=== PATIENT | female | born 1975 | race American Indian/Alaskan Native ===

== ENCOUNTER 2021-02-06 11:27 | Emergency (ER) | payer BC, OTHER ==
[2021-02-06] MEDS ORDERED: cloNIDine 0.2 MG TAB PO ONE (12:29)
--- NOTE | 2021-02-06 12:33 | Emergency Department Report ---
HPI - General Chief Complaint: Dizziness Time Seen by Provider: 02/06/21 12:29 - HPI HPI: This is a 45-year-old -Indian female presents to the emergency department after passing out this morning shortly after moving a mini fridge up a few flights of stairs. This occurred somewhere around 11:45 AM. The patient remembers getting the fridge up to the room but then told her mother that she needed to take a quick break because she felt dizzy. The next thing she remembers her mother was standing over her asking how to unlock her phone to call for EMS and told her that she had passed out. After her syncopal episode the patient denies any headache, neck pain, back pain, chest pain, shortness of breath, dizziness/lightheadedness. She has a history of hypertension for which she takes lisinopril 10 mg/day, but did not take the medication this morning. The patient was found to have extremely elevated blood pressure both with EMS and in triage. The patient declined EMS transport. She denies any tobacco or illicit drug use. ED Past Medical Hx - Past Medical History Previous Medical History?: Yes Hx Hypertension: Yes - Surgical History Past Surgical History?: Yes Hx Cholecystectomy: Yes - Social History Smoking Status: Never Smoker Substance Use Type: None - Medications Home Medications: Home Medications Medication Instructions Recorded Confirmed Last Taken Type amLODIPine 5 mg PO DAILY #20 tab 02/06/21 Unknown Rx ED Review of Systems ROS: Stated complaint: FALL OUT/BLOOD PRESSURE Other details as noted in HPI Comment: All other systems reviewed and negative Constitutional: denies: chills, fever Eyes: denies: eye pain, vision change ENT: denies: ear pain, throat pain Respiratory: denies: cough, shortness of breath Cardiovascular: syncope. denies: chest pain Gastrointestinal: denies: abdominal pain, vomiting Genitourinary: denies: dysuria, discharge Musculoskeletal: denies: back pain, arthralgia Skin: denies: rash, lesions Neurological: other (dizziness/lightheaded). denies: headache, weakness, numbness, paresthesias Physical Exam - Physical Exam Vital Signs: Vital Signs 02/06/21 11:54 Temperature 98.8 F Pulse Rate 99 H Respiratory 20 Rate Blood Pressure 222/145 O2 Sat by Pulse 99 Oximetry Physical Exam: GENERAL: The patient is well-developed well-nourished. HENT: Normocephalic. Atraumatic. Patient has moist mucous membranes. EYES: Extraocular motions are intact. No nystagmus. NECK: Supple. Trachea is midline. CHEST/LUNGS: Clear to auscultation. There is no respiratory distress noted. HEART/CARDIOVASCULAR: Regular. There is no tachycardia. There is no murmur. ABDOMEN: Abdomen is soft, nontender. Patient has normal bowel sounds. Obese habitus. SKIN: Skin is warm and dry. NEURO: The patient is awake, alert, and oriented. The patient is cooperative. The patient has no focal neurologic deficits. Normal speech. Cranial nerves II through XII grossly intact. No facial asymmetry. No pronator drift or dysmetria. MUSCULOSKELETAL: There is no tenderness or deformity. There is no limitation range of motion. ED Course Vital Signs 02/06/21 11:54 Temperature 98.8 F Pulse Rate 99 H Respiratory 20 Rate Blood Pressure 222/145 O2 Sat by Pulse 99 Oximetry - Consultations Consultation #1: 02/06/21 15:[address] Do, [facility], on the [facility]. Unfortunately patient does not have any previous EKGs in which to compare these lateral T wave inversions. Dr. Do agrees with the plan for outpatient follow-up. She is arranging for the patient to have an assigned appointment with her PCP in the next few days, and [facility] will also call her to schedule close outpatient follow-up regarding her EKG findings and this recent syncopal episode. ED Medical Decision Making - Lab Data Result diagrams: 02/06/21 12:35 02/06/21 12:35 Lab Results 02/06/21 02/06/21 02/06/21 Range/Units 12:35 12:35 12:35 WBC 7.0 (4.5-11.0) K/mm3 RBC 4.41 (3.65-5.03) M/mm3 Hgb 13.0 (10.1-14.3) gm/dl Hct 38.2 (30.3-42.9) % MCV 87 (79-97) fl MCH 29 (28-32) pg MCHC 34 (30-34) % RDW 15.0 (13.2-15.2) % Plt Count 305 (140-440) K/mm3 Lymph % (Auto) 18.0 (13.4-35.0) % [place] % (Auto) 6.6 (0.0-7.3) % Eos % (Auto) 0.3 (0.0-4.3) % Baso % (Auto) 1.4 (0.0-1.8) % Lymph # (Auto) 1.3 (1.2-5.4) K/mm3 [place] # (Auto) 0.5 (0.0-0.8) K/mm3 Eos # (Auto) 0.0 (0.0-0.4) K/mm3 Baso # (Auto) 0.1 (0.0-0.1) K/mm3 Seg Neutrophils % 73.7 H (40.0-70.0) % Seg Neutrophils # 5.2 (1.8-7.7) K/mm3 Sodium 138 (137-145) mmol/L Potassium 4.1 (3.6-5.0) mmol/L Chloride 103.1 (98-107) mmol/L Carbon Dioxide 28 (22-30) mmol/L Anion Gap 11 mmol/L BUN 9 (7-17) mg/dL Creatinine 1.1 (0.6-1.2) mg/dL Estimated GFR > 60 ml/min BUN/Creatinine Ratio 8 % Glucose 112 H (65-100) mg/dL Calcium 9.8 (8.4-10.2) mg/dL Total Bilirubin 0.40 (0.1-1.2) mg/dL AST 13 (5-40) units/L ALT 11 (7-56) units/L Alkaline Phosphatase 46 (35-129) units/L Troponin T < 0.010 (0.00-0.029) ng/mL Total Protein 7.8 (6.3-8.2) g/dL Albumin 4.4 (3.9-5) g/dL Albumin/Globulin Ratio 1.3 % TSH 3.050 (0.270-4.200) mlU/mL - EKG Data -: EKG Interpreted by Sd EKG shows normal: sinus rhythm, axis, intervals, QRS complexes, ST-T waves (Lateral T wave inversions) Rate: normal - EKG Data When compared to previous EKG there are: previous EKG unavailable Interpretation: other (Sinus rhythm at 98 bpm, normal axis, normal intervals, T wave inversions to the lateral leads. No ST elevation PA) - Medical Decision Making This patient presents to the emergency department after having 1-2 syncopal episodes after helping to carry up a mini fridge up multiple flights of stairs. At the time of my initial examination she is awake, alert, oriented and does not have any focal, motor or sensory deficits. The patient is asymptomatic at this time. Heart and lung sounds are normal to auscultation and the patient does not appear in any respiratory or acute distress. EKG does not have any morphology consistent with ST elevation myocardial infarction or any arrhythmia. She does have some lateral T wave inversions. Labs have been unremarkable including CBC, metabolic panel, negative troponin and normal thyroid function. Patient presents with very elevated blood pressure. She was given a dose of Catapres and upon reevaluation the blood pressure has come down to a more reasonable level at about 160/100. She has been reevaluated multiple times over more than 4 hours in the emergency department and there has been no return of any dizziness, lightheadedness, further syncopal episodes, development of chest pain, and the patient remains asymptomatic. I spoke with [facility] and they are setting the patient up for close outpatient follow-up with primary care and cardiology. For all these reasons the patient appears safe for discharge home at this time. She will be placed on a medium dose of Norvasc, to be taken along with her lisinopril. We also discussed staying away from foods that are high in salt and caffeinated products, as well as keeping a blood pressure log. All the patient's questions have been answered and she understands and agrees to this plan. Critical Care Time: No Critical care attestation.: If time is entered above; I have spent that time in minutes in the direct care of this critically ill patient, excluding procedure time. ED Disposition Clinical Impression: Uncontrolled hypertension Syncope Qualifiers: Syncope type: unspecified Qualified Code(s): R55 - Syncope and collapse Disposition: 01 HOME / SELF CARE / HOMELESS Is pt being admited?: No Condition: Stable Instructions: Syncope, Hypertension, Adult, Syncope (ED), Hypertension (ED) Additional Instructions: [facility] is setting you up for an outpatient appointment with your primary care physician in the next few days. You will also be receiving a phone call from [facility] to set up close outpatient follow-up. Take your blood pressure medication as previously prescribed. I am giving you a prescription for a second blood pressure medication called amlodipine/Norvasc. This medication is taken once daily, usually in the morning. Try to stay away from foods that are high in salt and caffeinated products. Keep a blood pressure log. Return to the emergency department with any worsening of your symptoms, new or concerning symptoms not addressed during this current emergency department visit, or with any acute distress. Prescriptions: amLODIPine 5 mg PO DAILY #20 tab Referrals: PRIMARY CAREMD [Primary Care Provider] - 2-3 Days Time of Disposition: 15:18
[2021-02-06 13:29] LABS: Basophils # (Auto) 0.1 K/mm3 (0.0-0.1); Basophils % (Auto) 1.4 % (0.0-1.8); Eosinophils % (Auto) 0.3 % (0.0-4.3); Hematocrit 38.2 % (30.3-42.9); Lymphocytes # (Auto) 1.3 K/mm3 (1.2-5.4); Mean Corpuscular HGB Conc 34 % (30-34); Mean Corpuscular Volume 87 fl (79-97); Monocytes # (Auto) 0.5 K/mm3 (0.0-0.8); Monocytes % (Auto) 6.6 % (0.0-7.3); Platelet Count 305 K/mm3 (140-440); Red Blood Count 4.41 M/mm3 (3.65-5.03)
[2021-02-06 13:38] LABS: Alanine Aminotransferase 11 units/L (7-56); Albumin 4.4 g/dL (3.9-5); BUN/Creatinine Ratio 8; Blood Urea Nitrogen 9 mg/dL (7-17); Calcium 9.8 mg/dL (8.4-10.2); Hemolysis Index 2
--- NOTE | 2021-02-06 13:59 | Electrocardiograph Report ---
[facility] Test Date: 2021-02-06 Test Time: 12:12:20 Pat Name: AMYCO PIERSON Department: Room: Gender: F Appliance Assembler: SOFÍA NELSONB: 1975 Requested By: JUANA CONNOR Order Number: [id number] Reading MD: Balaji Sanchez Measurements Intervals [place] Rate: 98 P: 48 NM: 166 QRS: 33 QRSD: 79 T: 215 QT: 340 QTc: 436 Interpretive Statements Sinus rhythm Probable left atrial enlargement Abnormal T, consider ischemia, diffuse leads?LVH with repolarization abnormalities. No previous ECG available for comparison Electronically Signed On 02-06-2021 13:58:50 EDT by Balaji Sanchez
[2021-02-06 14:57] VITALS: BP 161/101
== END 2021-02-06 15:41 | disposition home or self-care (01) ==
LOC: ED 11:27
DX: I10 Essential (primary) hypertension (principal); R55 Syncope and collapse; Z79.899 Other long term (current) drug therapy; Z90.49 Acquired absence of other specified parts of digestive tract
CPT/HCPCS: 36415; 80053; 84443; 84484; 85025; 93005